=== PATIENT | female | born 1975 | race Caucasian/White ===

== ENCOUNTER 2023-08-02 07:18 | Emergency (ER) | payer OTHER ==
[~2023-08-02] VITALS: Ht 157.5 cm; Wt 71.7 kg
[2023-08-02 08:08] LABS: BASOPHILS ABSOLUTE AUTO 0.03 K/mm3 (0.00-0.23); BASOPHILS PERCENT AUTO 0 % (0-2); EOSINOPHILS ABSOLUTE AUTO 0.42 K/mm3 (0.00-0.68); EOSINOPHILS PERCENT AUTO 6 % (0-6); Hematocrit 39.8 % (33.0-51.0); Hemoglobin 13.5 g/dL (11.5-16.0); IMMATURE GRAN ABSOLUTE AUTO 0.01 K/mm3 (0.00-0.10); IMMATURE GRAN PERCENT AUTO 0 % (0-1); LYMPHOCYTES PERCENT AUTO 41 % (21-46); MONOCYTES ABSOLUTE AUTO 0.42 K/mm3 (0.16-1.47); MONOCYTES PERCENT AUTO 6 % (4-13); Mean Corpuscular HGB 29.7 pg (26.0-34.0); Mean Corpuscular HGB Conc 33.9 g/dL (31.5-36.5); Mean Corpuscular Volume 88 fL (80-100); Mean Platelet Volume 10.3 fL (9.1-12.4); NEUTROPHILS ABSOLUTE AUTO 3.37 K/mm3 (1.96-9.15); NEUTROPHILS PERCENT AUTO 47 % (41-73); Platelet Count 288 K/mm3 (150-400); RDW Coefficient Variation 12.8 % (11.7-14.2); RDW Standard Deviation 40.9 fL (35.1-46.3); Red Blood Cell Count 4.55 M/mm3 (3.80-5.20); White Blood Cell Count 7.15 K/mm3 (4.00-11.30)
[2023-08-02 08:29] LABS: Albumin, Blood 3.5 g/dL (3.4-5.0); Albumin/Globulin Ratio 0.9 (0.8-1.8); Bilirubin, Total 0.3 mg/dL (0.1-1.0); Bun/Creatinine Ratio 18.1 (12.0-20.0); Calcium, Blood 8.6 mg/dL (8.5-10.1); Creatinine, Blood 0.83 mg/dL (0.40-1.00); Potassium, Blood 3.4 mmol/L (3.5-5.5); Total Protein, Blood 7.5 g/dL (6.4-8.2)
[2023-08-02 08:30] VITALS: BP 107/57
[2023-08-02] MEDS ORDERED: OXYACE7.5T PO (10:43)
[2023-08-02] MEDS ORDERED: TAMS.4ER PO (10:43)
== END 2023-08-02 12:05 | disposition home or self-care (01) ==
LOC: ER 07:18
PROVIDERS: Emergency Medicine
DX: N13.2 Hydronephrosis with renal and ureteral calculous obstruction (principal)
CPT/HCPCS: 74177; 80053; 83690; 84702; 85025; 96361; 96374-59; 96375; 99284-25; A9270; J1885; J2270; J2405; J3010; J7030; Q9967

== ENCOUNTER → 2023-08-10 | Outpatient (CLI) | payer OTHER ==
[~2023-08-10] MED LIST: OXYACE7.5T PO; TAMS.4ER PO
== END ==
LOC: LAB SHORT 11:39 → LAB 11:39
DX: R30.0 Dysuria (principal)
CPT/HCPCS: 87086

== ENCOUNTER 2024-05-04 08:07 | Day surgery (SDC) | payer OTHER ==
[2024-05-04] VITALS (12 sets, daily range): BP systolic 103–126; BP diastolic 52–106
[~2024-05-04] VITALS: Ht 167.6 cm; Wt 78.2 kg
[~2024-05-04 08:07] MED LIST changes: +NS 500 ML IV SCH
[2024-05-04] MEDS ORDERED: propofoL 40 ML IV ONE (08:36)
--- NOTE | 2024-05-04 09:17 | NUR ---
05/04/24 0917 Jacques Dumont CONFIRMED AND REVIEWED H&P, MEDCICATIONS, ALLERGIES, MEDICAL HISTORY, RESPIRATORY HISTORY, VITAL SIGNS, 3-LEAD EKG, CONSENTS, AND PHYSICIAN ORDERS. PATIENT CONFIRMS NPO STATUS AND AGREES WITH SCHEDULED PROCEDURE. MONITOR INTACT WITH CONTINUOUS PULSE OXIMETRY, CAPNOGRAPHY, 3-LEAD EKG, INTERMITTENT BP. SUPPLEMENTAL O2 TO BE TITRATED THROUGHOUT PROCEDURE TO MAINTAIN O2 SATURATION ABOVE 90%. PATIENT DETERMINED TO BE ASA APPROPRIATE FOR PROPOFOL SEDATION PRIOR TO START OF PROCEDURE BY DR. GIRON.
--- NOTE | 2024-05-04 10:05 | NUR ---
Discharge instructions reviewed with patient. Patient verbalizes understanding. Copy given to patient to take home. Patient States Post-Procedure ride home has been arranged. Discharged via wheelchair to private car for ride home.
== END 2024-05-04 10:06 | disposition home or self-care (01) ==
LOC: ORSCMMR 08:07 → ORD 09:00 → ORSCMMR 10:06
PROVIDERS: Internal Medicine Gastroenterology
PROC: 0DJD8ZZ Inspection of Lower Intestinal Tract, Via Natural or Artificial Opening Endoscopic (ICD-10-PCS; principal; 2024-05-04 09:00)
DX: K62.5 Hemorrhage of anus and rectum (principal); K64.8 Other hemorrhoids; K62.4 Stenosis of anus and rectum
CPT/HCPCS: J2704; J7040

== ENCOUNTER → 2024-09-05 | Outpatient (CLI) | payer OTHER ==
[~2024-09-05] MED LIST changes: -NS 500 ML IV SCH
[2024-09-09 12:33] LABS: HPV HIGH RISK BY TMA Not Detected; HPV SOURCE Cervical
== END ==
LOC: LAB SHORT 13:34 → LAB 13:34
PROVIDERS: Nurse Practitioner Family
DX: Z12.4 Encounter for screening for malignant neoplasm of cervix (principal)
CPT/HCPCS: 87624; G0123

== ENCOUNTER 2024-11-13 07:38 | Observation (INO) | payer OTHER ==
[~2024-11-13] VITALS: Ht 157.5 cm; Wt 77.1 kg
[2024-11-13] VITALS (15 sets, daily range): BP systolic 102–141; BP diastolic 68–85
[2024-11-13 08:05] LABS: Source, Urine Clean Catch
[2024-11-13 08:12] LABS: BASOPHILS ABSOLUTE AUTO 0.02 K/mm3 (0.00-0.23); BASOPHILS PERCENT AUTO 0 % (0-2); EOSINOPHILS ABSOLUTE AUTO 0.05 K/mm3 (0.00-0.68); EOSINOPHILS PERCENT AUTO 0 % (0-6); Hematocrit 40.8 % (33.0-51.0); Hemoglobin 13.4 g/dL (11.5-16.0); IMMATURE GRAN ABSOLUTE AUTO 0.03 K/mm3 (0.00-0.10); IMMATURE GRAN PERCENT AUTO 0 % (0-1); LYMPHOCYTES ABSOLUTE AUTO 1.28 K/mm3 (0.84-5.20); LYMPHOCYTES PERCENT AUTO 10 % (21-46); MONOCYTES ABSOLUTE AUTO 0.65 K/mm3 (0.16-1.47); MONOCYTES PERCENT AUTO 5 % (4-13); Mean Corpuscular HGB 28.6 pg (26.0-34.0); Mean Corpuscular HGB Conc 32.8 g/dL (31.5-36.5); Mean Corpuscular Volume 87 fL (80-100); Mean Platelet Volume 9.8 fL (9.1-12.4); NEUTROPHILS ABSOLUTE AUTO 10.64 K/mm3 (1.96-9.15); NEUTROPHILS PERCENT AUTO 84 % (41-73); Platelet Count 266 K/mm3 (150-400); RDW Coefficient Variation 12.7 % (11.7-14.2); RDW Standard Deviation 40.2 fL (35.1-46.3); Red Blood Cell Count 4.68 M/mm3 (3.80-5.20); White Blood Cell Count 12.67 K/mm3 (4.00-11.30)
[2024-11-13 08:17] LABS: Bilirubin, Urine Neg (Neg); Blood, Urine 3+ (Neg); Glucose Qualitative, Urine Neg (Neg); Ketones, Urine Neg (Neg); Leukocyte Esterase, Urine Neg (Neg); Nitrite, Urine Neg (Neg); Protein, Urine Neg (Neg); Specific Gravity, Urine 1.025 (1.003-1.022); Urobilinogen, Urine NORM (Normal)
[2024-11-13 08:23] LABS: Appearance, Urine Clear (Clear); Color, Urine Yellow (P-Yellow)
[2024-11-13 08:34] LABS: Mucus Light (0-Heavy)
[2024-11-13 08:37] LABS: Bacteria Few /hpf; Squamous Epithelial Cells Mod /hpf (Few); White Blood Cells, Urine 0-2 /hpf (0-5)
[2024-11-13 08:44] LABS: Albumin, Blood 3.7 g/dL (3.4-5.0); Albumin/Globulin Ratio 0.9 (0.8-1.8); Bilirubin, Total 0.3 mg/dL (0.1-1.0); Bun/Creatinine Ratio 17.5 (12.0-20.0); Calcium, Blood 9.1 mg/dL (8.5-10.1); Creatinine, Blood 0.74 mg/dL (0.40-1.00); Total Protein, Blood 7.7 g/dL (6.4-8.2)
[2024-11-13] MEDS ORDERED: NS 1,000 ML IV SCH (08:45)
[2024-11-13] MEDS ORDERED: Ampicillin Sod/Sulbactam Sod 3 GM in NS 100 ML IV ONE (09:20)
[2024-11-13] MEDS ORDERED: OxyCODONE HCL 5 MG TAB PO PRN (09:45)
[2024-11-13] MEDS ORDERED: HYDROmorphone HCl/Pf 1MG SYR IV PRN ×2 (09:45→19:00)
[2024-11-13] MEDS ORDERED: Acetaminophen 325 MG TABLET PO PRN (09:45)
[2024-11-13] MEDS ORDERED: Ondansetron HCl 2 MG / ML 2ML Vial IV PRN ×2 (09:45→18:55)
[2024-11-13] MEDS ORDERED: Lactated Ringer's 1,000 ML IV SCH ×2 (09:50→14:10)
[2024-11-13] MEDS ORDERED: Ketorolac Tromethamine 15mg Vial IV PRN (09:55)
[2024-11-13] MEDS ORDERED: Bupivacaine 0.5% HCl 5 MG/ML 30MLVIAL ONE ×2 (13:54→14:44)
--- NOTE | 2024-11-13 14:33 | NUR ---
PT TO OR
[2024-11-13] MEDS ORDERED: HYDROmorphone HCl/Pf 1MG SYR ONE ×2 (14:47→16:41)
[2024-11-13] MEDS ORDERED: Sugammadex Sodium 200 MG/2ML SDV (100 MG/ML) ONE (14:47)
[2024-11-13] MEDS ORDERED: propofoL 20 ML IV ONE (14:47)
[2024-11-13] MEDS ORDERED: Midazolam HCl 1MG / ML 2ML Vial ONE (14:47)
[2024-11-13] MEDS ORDERED: FentaNYL Citrate 50 MCG/ML 2 ML Injection ONE (14:47)
[2024-11-13] MEDS ORDERED: Rocuronium Bromide 10 MG/ML 5ML Injection IV ONE (14:53)
[2024-11-13] MEDS ORDERED: Ampicillin Sod/Sulbactam Sod 3 GM in NS 100 ML IV SCH (15:00)
[2024-11-13] MEDS ORDERED: Ketorolac Tromethamine 30mg Vial ONE (16:40)
[2024-11-13] MEDS ORDERED: Lidocaine HCl 2% 20 ML MDV ONE (17:21)
[2024-11-13] MEDS ORDERED: Ondansetron HCl 2 MG / ML 2ML Vial ONE (18:45)
[2024-11-13] MEDS ORDERED: Dexamethasone Sod Phos 10 MG/ML 1ML VIAL ONE (18:45)
[2024-11-13] MEDS ORDERED: FentaNYL Citrate 50 MCG/ML 2 ML Injection IV PRN ×3 (18:55)
[2024-11-13] MEDS ORDERED: Metoclopramide HCl 5MG / ML 2ML Vial IV PRN (19:00)
--- NOTE | 2024-11-13 20:02 | NUR ---
PT ARRIVED P/O FROM PACU. PT A/O, DROWSY. VSS. LAP INCISIONS TO ABD CDI. PT DENIES PAIN/N/V. IVF RESTARTED PER EMAR. FATHER IN ROOM.
[2024-11-14 03:24] VITALS: BP 114/68
--- NOTE | 2024-11-14 06:26 | NUR ---
POD 1 S/P LAP APPY. PT VSS T/O NIGHT, INCISIONS CDI. PT REP PAIN MINIMAL, MGD PER EMAR W/REP RELIEF. BT HYPO, PT DENIED N/V, REP NO FLATUS YET; IS LULY SM AMT REG PO. PT AMB INDEP IN ROOM, IV SL. PLAN TO DC HOME TODAY.
[2024-11-14 07:16] VITALS: BP 118/70
--- NOTE | 2024-11-14 11:44 | NUR ---
PT C/O FACE FEELING FLUSHED/HOT AFEBRILE. VSS. DISCUSSED WITH DR OVIEDO. NO NEW ORDERS. PT MAY DC HOME.
[2024-11-14 12:05] VITALS: BP 135/79
--- NOTE | 2024-11-14 12:09 | NUR ---
discharging VSS. DR OVIEDO SENT PRESCRIPTION FOR PAIN MEDS ELECTRONICALLY. REVIEWED DC INSTRUCTIONS W/PT; VERBALIZED UNDERSTANDING. PT GETTING DRESSED. WILL CALL FOR WC WHEN READY. FAMILY BEDSIDE.
--- NOTE | 2024-11-14 12:49 | NUR ---
discharged pt left unit at 1220 w/possessions and dc instructions in hand, in [place], accompanied by family.
== END 2024-11-14 12:19 | disposition home or self-care (01) ==
LOC: ER 07:38 → SURS 07:39
PROVIDERS: Student in an Organized Health Care Education/Training Program; ADMIT Surgery
PROC: 0DTJ0ZZ Resection of Appendix, Open Approach (ICD-10-PCS; principal; 2024-11-13 15:00)
DX: K35.80 Unspecified acute appendicitis (principal)
CPT/HCPCS: 74177; 80053; 81001; 81025; 83690; 85025; 88304; 93005; 93010; 96365-59; 96375; 96376; 99285-25; A9270; G0378; J0295; J1100; J1171; J1885; J2250; J2405; J2704; J3010; J7030; J7120; Q9967